=== PATIENT | male | born 2000 | race Caucasian/White ===

== ENCOUNTER → 2021-05-01 | Outpatient (CLI) | payer BC, OTHER ==
[~2021-05-01] MED LIST: AMOXICILLIN 8751 TAB PO; MOTRIN 800800 MG/TAB PO
== END ==
LOC: COL.RAD 10:05
DX: M25.531 Pain in right wrist (principal)
CPT/HCPCS: A9585; Q9967

== ENCOUNTER 2021-09-09 02:59 | Emergency (ER) | payer BC ==
[~2021-09-09] VITALS: Ht 195.6 cm; Wt 120.5 kg
[2021-09-09 03:25] LABS: BASO # 0.1 K/mm3 (0.0-0.2); EOS % 0.3 % (0.0-4.0); GRAN # 4.8 K/mm3 (1.4-6.5); GRAN % 67.1 % (42.2-75.2); HEMATOCRIT 42.6 % (42.0-52.0); HEMOGLOBIN 14.5 g/dl (13.5-18.0); LYMPH # 1.8 K/mm3 (1.2-3.4); LYMPH % 24.9 % (20.0-51.0); MEAN CELL VOLUME 89 fl (80.0-100.0); MEAN CORPUSCULAR HEMOGLOBIN 30 pg (27-31); MEAN CORPUSCULAR HGB CONC 34 g/dl (33.0-37.0); MEAN PLATELET VOLUME 9.9 fl (7.4-10.4); MONO # 0.5 K/mm3 (0.1-0.6); MONO % 6.3 % (1.7-9.3); PLATELET COUNT 280 K/mm3 (130-400); RED BLOOD COUNT 4.79 M/mm3 (4.20-5.60); REDCELL DISTRIBUTION WIDTH-CV 13.2 % (11.5-14.5)
[2021-09-09 03:46] LABS: ALBUMIN 4.1 gm/dL (3.5-5.0); BILIRUBIN,TOTAL 0.4 mg/dL (0.2-1.2); CALCIUM 9.2 mg/dL (8.4-10.2); CREATININE, serum 1.15 mg/dL (0.72-1.25); POTASSIUM 3.7 mmol/L (3.5-4.5); TOTAL PROTEIN 7.2 gm/dL (6.2-8.1)
[2021-09-09] MEDS ORDERED: NORCO 325 MG-51 TAB PO (04:11)
[2021-09-09 04:54] VITALS: BP 109/63; PULSE 88
== END 2021-09-09 04:56 | disposition home or self-care (01) ==
LOC: COL.ER 02:59
PROVIDERS: Family Medicine
DX: S22.42XA Multiple fractures of ribs, left side, initial encounter for closed fracture (principal); Z28.310 Unvaccinated for COVID-19; W13.0XXA Fall from, out of or through balcony, initial encounter; W22.8XXA Striking against or struck by other objects, initial encounter
CPT/HCPCS: J2270; J2405; Q9967